=== PATIENT | male | born 1955 | race Caucasian/White ===

== ENCOUNTER 2019-09-18 20:37 | Emergency (ER) | payer SELFPAY ==
[~2019-09-18 20:37] MED LIST: EPINEPHrine SYRINGE 1 MG/10 ML SYRINGE ONE; SODIUM BICARBONATE 50 MEQ/50 ML VIAL. ONE
[2019-09-18 20:56] LABS: CREATININE ISTAT 1.6 mg/dL (0.5-1.4); HEMOGLOBIN ISTAT 15.6 g/dL (14-18); ION CA ISTAT 1.09 mmol/L (1.13-1.32); POTASSIUM ISTAT 3.4 mmol/L (3.5-5.0)
--- NOTE | 2019-09-18 23:26 | PHYS DOC ---
Past Medical History Past Medical History: Other Additional Past Medical Histor: LEUKEMIA Past Surgical History: Other Additional Past Surgical Histo: UNKNOWN Additional Information: UNKNOWN Social History Narrative: UNKNOWN Adult General Chief Complaint Chief Complaint: CPR/FULL ARREST HPI HPI Patient is a 63 year old male brought by EMS with ongoing CPR. EMS state that patient call family stating that he was not feeling good. Family called EMS and the time EMS got on scene at 1954, patient was unresponsive. They immediately started CPR following ACLS protocol. Pily there are to the ER that given a total of 7 rounds of epinephrine. Patient continued to be in asystole throughout the CPR. I right lower leg IO was inserted by EMS. Patient was also intubated bedtime his brought to ED. Bedtime he came to the ED trace 2019. In the ED ACLS protocol was followed and did 3 rounds of epinephrine was given as well as CPR. Patient did not have return of spontaneous circulation. Discussed with family who stated that patient had a history of leukemia and that he had blood draws to thin his blood because his blood was too thick. No other obvious signs of injury seen on the body of the patient. Emesis has a state that the glucose was 72. Review of Systems Review of Systems No review of systems as patient was unresponsive Physical Exam Physical Exam Constitutional: CPR ongoing[] HENT: Normocephalic, atraumatic. Patient is currently intubated [] Neck: Normal range of motion, no tenderness, supple, no stridor. [] Cardiovascular: Patient has no heartbeat Lungs & Thorax: Patient has no spontaneous breathing[] Neurologic: Pupils are fixed and dilated[] Current Patient Data Vital Signs Vital Signs Date Time Temp Pulse Resp B/P (MAP) Pulse Ox O2 Delivery O2 Flow Rate FiO2 09/18/19 20:38 97.8 0 Bag Valve Mask 97.8 Lab Values Laboratory Tests Test 09/18/19 20:45 09/18/19 20:48 POC Troponin I 0.00 ng/ml (<0.08) POC Hemoglobin 15.6 g/dL (14-18) POC Hematocrit 46 % (37-52) POC Sodium 141 mmol/L (135-145) POC Potassium 3.4 mmol/L (3.5-5.0) L POC Chloride 102 mmol/L (98-110) POC Total CO2 21 mmol/L (23-32) L Anion Gap 23 mmol/L (6-14) H POC Blood Urea Nitrogen 25 mg/dL (8-26) POC Creatinine 1.6 mg/dL (0.5-1.4) H Glucose Level 393 mg/dL (70-99) H POC Ionized Calcium (Elisa) 1.09 mmol/L (1.13-1.32) L Laboratory Tests 09/18/19 20:48 EKG EKG [] Radiology/Procedures Radiology/Procedures [] Course & Med Decision Making Course & Med Decision Making ACLS protocol was followed. Please see nursing charts of further details No return of spontaneous rhythm Another IO was placed in the left lower extremity. 3 lines of epinephrine given in the ED. One amp of sodium bicarbonate was also given the ED. Patient pronounced at 2051 Discussed with family that is present in the ED. Dragon Disclaimer Dragon Disclaimer This electronic medical record was generated, in whole or in part, using a voice recognition dictation system. Departure Departure Referrals: Lori BARBER MD (PCP) RAMANDEEP PALACIO DO Sep 18, 2019 23:26
== END 2019-09-19 01:05 | disposition expired ==
LOC: ER 20:37
DX: I46.9 Cardiac arrest, cause unspecified (principal)
CPT/HCPCS: 31500; 80047; 84484; 92950; 99285; J0171